=== PATIENT | female | born 1960 | race Caucasian/White ===

== ENCOUNTER 2018-09-24 15:47 | Emergency (ER) | payer MEDICAID, OTHER ==
[2018-09-24] VITALS (7 sets, daily range): BP systolic 91–121; BP diastolic 44–59
[~2018-09-24] VITALS: Ht 157.5 cm; Wt 49.9 kg
[2018-09-24] MEDS ORDERED: ONDANSETRON HCL 4 MG/2 ML VIAL ONE ×2 (16:58→21:10)
[2018-09-24] MEDS ORDERED: SODIUM CHLORIDE 0.9% 1,000 ML IV ONE (17:13)
[2018-09-24] MEDS ORDERED: SODIUM CHLORIDE 0.9% 1,000 ML IVB ONE (17:13)
[2018-09-24] MEDS ORDERED: PANTOPRAZOLE 40 MG/10 ML VIAL IV STA (17:13)
[2018-09-24] MEDS ORDERED: OCTREOTIDE ACETATE 500 MCG in SODIUM CHL 0.9% 100 ML IV ONE (17:15)
[2018-09-24] MEDS ORDERED: PANTOPRAZOLE 80 MG in SODIUM CHL 0.9% 60 ML IV ONE (17:15)
[2018-09-24] MEDS ORDERED: LORazepam 2MG/ML-1ML VIAL ONE (17:22)
[2018-09-24] MEDS ORDERED: TETANUS-DIPTH-ACEL PERTUSSIS 0.5ML SYRG IM ONE (17:30)
[2018-09-24 17:39] LABS: Albumin 2.4 g/dL (3.4-5.0); BUN/Creatinine Ratio 31.7; Calcium 7.6 mg/dL (8.5-10.1)
[2018-09-24 17:41] LABS: Total Protein 6.8 g/dL (6.4-8.2)
[2018-09-24 17:44] LABS: Hematocrit 9.8 % (36.0-46.0); Mean Corpuscular Hemoglobin 26.8 pg (28.0-32.0); Mean Corpuscular Hgb Conc. 31.1 g/dL (32.0-36.0); Mean Corpuscular Volume 86.1 fL (80.0-100.0); Red Blood Cells 1.14 10^6/uL (4.0-5.20)
[2018-09-24] MEDS ORDERED: POTASSIUM CHL 10% (20 MEQ/15ML) 15ml ORAL SOLN GT ONE (18:00)
[2018-09-24 18:02] LABS: White Blood Cell 1.4 10^3/uL (4.4-10.8)
[2018-09-24 18:03] LABS: Red Cell Distribution Width 27.5 % (11.8-14.3)
[2018-09-24 18:04] LABS: Platelet Count (auto) 12 10^3/uL (140-450)
[2018-09-24 18:05] LABS: Band Neutrophils % (manual) 0; Basophils % (manual) 0 (0.0-2.0); Metamyelocytes % 0; Myelocytes % 0; Promyelocytes % 0; Reactive Lymphocytes 0
[2018-09-24 18:10] LABS: Magnesium 1.1 mg/dL (1.6-2.6)
[2018-09-24] MEDS ORDERED: CALCIUM CHL 100MG/ML 1,000 MG in D5W 5% 100 ML IV ONE (18:30)
[2018-09-24 18:49] LABS: Blast Cells 1; Eosinophils % (manual) 1 (0-7); Lymphocytes % (manual) 51 (10.0-50.0); Monocytes % (manual) 15 (0-12)
[2018-09-24 19:06] LABS: INR 1.75 (0.9-1.15); Partial Thromboplastin Time 47.4 sec (23.78-33.04); Prothrombin Time 18.1 sec (9.27-12.13)
[2018-09-24 19:20] LABS: Urine Bacteria NONE SEEN /hpf (None Seen); Urine Blood Negative /uL (Negative); Urine Specific Gravity 1.011 (1.001-1.035); Urine WBC 2 /hpf (0 - 5)
[2018-09-24 19:22] LABS: Alcohol, Urine < 3.0 mg/dL (0-5); Amphetamine Screen, Urine NEGATIVE (NEGATIVE); Barbiturate Scree,Urine NEGATIVE (NEGATIVE); Benzodiazephine Screen, Urine NEGATIVE (NEGATIVE); Cannabinoid Screen, Urine NEGATIVE (NEGATIVE); Cocaine Screen, Urine NEGATIVE (NEGATIVE); Opiate Scree,Urine NEGATIVE (NEGATIVE); Phencyclidine Screen, Urine NEGATIVE (NEGATIVE)
[2018-09-24] MEDS: MAGNESIUM SULFATE 1GM/100ML 100 ML IV SCH ×3 (20:11→22:12)
[2018-09-24] MEDS: POTASSIUM CHL 20MEQ/100ML 100 ML IV SCH ×2 (20:29→22:23)
[2018-09-24] MEDS ORDERED: METOCLOPRAMIDE HCL 5MG/ml INJ 2ml VIAL ONE (21:43)
[2018-09-24] MEDS ORDERED: METOCLOPRAMIDE HCL 5MG/ml INJ 2ml VIAL IV ONE (21:45)
[2018-09-24] MEDS ORDERED: ONDANSETRON HCL 4 MG/2 ML VIAL IV ONE (22:30)
[2018-09-24] MEDS ORDERED: NOREPINEPHRINE 8 MG/250ML KIT 250 ML IV SCH (23:21)
[2018-09-25 00:36] LABS: Hematocrit 13.2 % (36.0-46.0); Mean Corpuscular Hemoglobin 27.3 pg (28.0-32.0)
[2018-09-25 00:38] LABS: Mean Corpuscular Hgb Conc. 32.5 g/dL (32.0-36.0); Mean Corpuscular Volume 83.9 fL (80.0-100.0); Red Blood Cells 1.57 10^6/uL (4.0-5.20)
[2018-09-25 00:42] LABS: Red Cell Distribution Width 21.4 % (11.8-14.3)
[2018-09-25 00:43] LABS: Hemoglobin 4.3 g/dL (12.2-16.2); Platelet Count (auto) 19 10^3/uL (140-450); White Blood Cell 1.2 10^3/uL (4.4-10.8)
[2018-09-25 00:44] LABS: Basophils % (manual) 0 (0.0-2.0); Blast Cells 0; Eosinophils % (manual) 0 (0-7); Metamyelocytes % 0; Myelocytes % 0; Promyelocytes % 0; Reactive Lymphocytes 0
[2018-09-25 00:53] LABS: BUN/Creatinine Ratio 29.9; Calcium 6.8 mg/dL (8.5-10.1); Magnesium 2.3 mg/dL (1.6-2.6); Potassium 3.6 mmol/L (3.5-5.1)
[2018-09-25 02:20] VITALS: BP 93/41
[2018-09-25 02:35] VITALS: BP 101/49
[2018-09-25] MEDS ORDERED: TETANUS-DIPTH-ACEL PERTUSSIS 0.5ML SYRG IM ONE (02:54)
[2018-09-25] MEDS ORDERED: OCTREOTIDE ACETATE 500 MCG/ML VL ONE (03:03)
[2018-09-25] MEDS ORDERED: PANTOPRAZOLE 40 MG/10 ML VIAL IV ONE (03:10)
[2018-09-25 03:30] VITALS: BP 117/57
[2018-09-25 04:53] LABS: Band Neutrophils % (manual) 17; Lymphocytes % (manual) 34 (10.0-50.0)
[2018-09-25 04:54] LABS: Monocytes % (manual) 18 (0-12)
[2018-09-25] MEDS ORDERED: PANTOPRAZOLE 80 MG in SODIUM CHL 0.9% 60 ML IV SCH (06:00)
[2018-09-25] MEDS ORDERED: OCTREOTIDE ACETATE 500 MCG in SODIUM CHL 0.9% 99 ML IV SCH (06:00)
[2018-09-26] MEDS ORDERED: LORazepam 2MG/ML-1ML VIAL IV ONE (09:15)
== END 2018-09-25 03:10 | disposition short-term general hospital (02) ==
LOC: ER 15:47 → EDBD 15:47 → UNDOADMIN 23:11 → TELE 23:11 → ER 09-25 03:10
DX: S00.03XA Contusion of scalp, initial encounter (principal); S00.12XA Contusion of left eyelid and periocular area, initial encounter; S00.11XA Contusion of right eyelid and periocular area, initial encounter; F10.10 Alcohol abuse, uncomplicated; E87.6 Hypokalemia; G40.909 Epilepsy, unspecified, not intractable, without status epilepticus; D62 Acute posthemorrhagic anemia; D69.6 Thrombocytopenia, unspecified; E83.42 Hypomagnesemia; K85.90 Acute pancreatitis without necrosis or infection, unspecified; K70.31 Alcoholic cirrhosis of liver with ascites; K76.6 Portal hypertension; K80.20 Calculus of gallbladder without cholecystitis without obstruction; K44.9 Diaphragmatic hernia without obstruction or gangrene; W18.39XA Other fall on same level, initial encounter; Y93.89 Activity, other specified; Y92.098 Other place in other non-institutional residence as the place of occurrence of the external cause; Y99.8 Other external cause status
CPT/HCPCS: 36415; 36430; 51702; 70450; 70486; 72125; 74176; 80048; 80053; 80307; 81001; 83690; 83735; 85007; 85027; 85610; 85730; 86850; 86900; 86901; 86920; 90471; 90715; 96365; 96366; 96368; 96375; 99291; C9113; J2060; J2405; J2765; J3475; J3480; J7030; J7060; P9016; P9017; P9035; G0378